=== PATIENT | female | born 1975 | race Caucasian/White ===

== ENCOUNTER 2019-09-21 04:48 | Emergency (ER) | payer SELFPAY ==
[2019-09-21 04:50] VITALS: BP 131/86; PULSE 71; RESP 22; TEMP 36.6; O2SAT 98; BMI 51.0
[2019-09-21 05:03] VITALS: BP 131/86; PULSE 71; RESP 22; TEMP 36.6; O2SAT 98
--- NOTE | 2019-09-21 05:54 | DI.CT.S_ITS ---
PROCEDURE: CT KIDNEY URETER BLADDER (KUB) INDICATIONS: R flank pain TECHNIQUE: Noncontrast 5 mm thick sections acquired from the diaphragms to the symphysis. 5 mm thick coronal and sagittal reformats were then performed. For radiation dose reduction, the following was used: automated exposure control, adjustment of mA and/or kV according to patient size. COMPARISON: [facility] 09/20/19 FINDINGS: Image quality: Excellent. Lung bases: Mild presumed atelectasis can be seen. Heart size is normal. Urinary system: There is excreting contrast seen within the renal collecting systems. Highly limits evaluation for stones. On the prior recent outside study, no large kidney stones can be seen. Both kidneys are normal in size. Both ureters appear non-dilated throughout their expected courses. Bladder wall thickness is normal; no calcified bladder stones. Other solid organs: Liver is normal in size. Gallbladder wall does not appear thickened. Pancreas is normal in contours. Spleen is enlarged, measuring 15 cm AP. No adrenal nodules. Peritoneum and bowel: Unenhanced bowel loops demonstrate normal wall thickness and caliber. No free fluid or air. Incidental note is made of a normal-appearing appendix. Nodes and vessels: No retroperitoneal or mesenteric adenopathy by size criteria. Aorta and inferior vena cava are normal in caliber. Abdominal wall: No ventral hernias. Pelvis: No free pelvic fluid. No inguinal hernias or adenopathy. Bones: No suspicious bony lesions. No vertebral body compression fractures. Degenerative changes are seen throughout, which are most prominent at the L5-S1 level. IMPRESSION: No findings of obstructive uropathy. The previously administered contrast limits evaluation or stones. However, no stones can be seen on the examination performed the on 09/20/19. Normal appendix. Incidental note is made of: Mild splenomegaly. Focal L5-S1 degenerative change Note: No significant discrepancy from the preliminary report. Dictated by: Braeden Tinajero M.D. on 09/21/2019 at 6:59 Approved by: Braeden Tinajero M.D. on 09/21/2019 at 7:04
[2019-09-21 05:58] LABS: Add Manual Diff / Slide Review NO; Basophils Absolute Auto 0 /uL (0-100); Basophils Percent Auto 0.7 % (0-2); Eosinophils Absolute Auto 100 /uL (0-450); Eosinophils Percent Auto 3.4 % (2-4); Hematocrit 36.7 % (36-46); Hemoglobin 12.5 g/dL (12.0-16.0); Lymphocytes Absolute Auto 600 /uL (1100-4500); Lymphocytes Percent Auto 21.1 % (25-40); Mean Corpuscular HGB Conc 34.1 % (30-36); Mean Corpuscular Hemoglobin 30.1 PG (26-34); Mean Corpuscular Volume 88.2 fL (80-100); Monocytes Absolute Auto 200 /uL (0-900); Monocytes Percent Auto 7.6 % (3-14); Neutrophils Absolute Auto 2000 /uL (1500-7000); Neutrophils Percent Auto 67.2 % (50-75); Platelet Count 177 X10^3/uL (150-400); Red Blood Cell Count 4.16 X10^6/uL (4.0-5.2); Red Cell Distribution Width 13.6 % (11.6-14.8)
[2019-09-21] MEDS: ONDANSETRON 4 MG/2 ML INJ IV (05:58)
[2019-09-21] MEDS: SODIUM CHLORIDE 0.9% 1,000 ML 1000 ML IV (05:58)
[2019-09-21 06:08] LABS: Alanine Aminotransferase 16 IU/L (<35); Albumin Globulin Ratio 1.3 (1.0-2.8); Alkaline Phosphatase 133 U/L (38-126); Aspartate Aminotransferase 24 IU/L (14-36); BUN Creatinine Ratio 11.3 (6-22); Bilirubin Total 1.3 mg/dL (0.2-1.3); Blood Urea Nitrogen 9 mg/dL (7-17); Calcium 8.8 mg/dL (8.4-10.2); Carbon Dioxide 22 mmol/L (22-32); Chloride 109 mmol/L (98-107); Estimated Glomerular Filt Rate > 60.0 mL/min (>60); Globulin 3.1 g/dL (1.7-4.1); Glucose 88 mg/dL (70-100); HEMOLYSIS < 15 (0-50); Lipase 100 U/L (23-300); Potassium 3.7 mmol/L (3.4-5.1); Sodium 140 mmol/L (137-145); Total Protein 7.1 g/dL (6.3-8.2)
--- NOTE | 2019-09-21 06:19 | ED.ABDPAIN ---
HPI - Abdominal Pain <Javier Frances DO - Last Filed: 09/22/19 03:17> General Chief Complaint: Abdominal Pain Stated Complaint: right side pain 5 days, now in back Time Seen by Provider: 09/21/19 04:50 Source: patient Mode of arrival: Ambulatory Limitations: no limitations History of Present Illness HPI narrative: 44-year-old female nonsmoker presents with a chief complaint of 5 days right flank pain with radiation to her right groin. She states it hurts most of the time but does have episodes where the pain intensifies without any obvious provocation. She has had nausea and vomiting and decreased oral input. She is not dizzy nor weak or lightheaded. She denies fever or chills. She denies any history of the same. She is visiting from [place]. She's had a C section and a history of ovarian cysts. MD complaint: abdominal pain and flank pain Onset (ago): day(s) Pain Consistency: constant and intermittent Location: RLQ and R flank Severity: severe Quality: cramping and stabbing Radiation: RLQ Relieving factors: nothing Exacerbating factors: nothing Associated symptoms: nausea and vomiting Related Data Allergies Allergy/AdvReac Type Severity Reaction Status Date / Time ketorolac [From Toradol] Allergy Verified 09/21/19 05:56 tramadol Allergy Verified 09/21/19 05:56 Review of Systems <Javier Frances DO - Last Filed: 09/22/19 03:17> Constitutional Constitutional: Denies chills, Denies fatigue, Denies fever(s), Denies frequent falls, Denies lethargy and Denies weakness Eyes Eyes: Denies change in vision, Denies eye discharge, Denies irritation and Denies loss of vision ENT Ears, Nose, Mouth, and Throat: Denies change in voice, Denies dizziness, Denies neck pain, Denies sore throat and Denies throat swelling Cardiovascular Cardiovascular: Denies chest pain, Denies irregular heart rhythm, Denies lightheadedness, Denies palpitations, Denies dyspnea, Denies dyspnea on exertion and Denies orthopnea Respiratory Respiratory: Denies cough, Denies dyspnea, Denies dyspnea on exertion and Denies wheezing Gastrointestinal Gastrointestinal: Denies abdominal pain, Denies change in bowel habits, Denies diarrhea, Denies nausea and Denies vomiting Genitourinary Genitourinary: Denies hematuria, Reports flank pain, Denies urinary incontinence and Denies urinary urgency Musculoskeletal Musculoskeletal: Denies back pain, Denies muscle weakness, Denies neck pain, Denies numbness and Denies tingling Integumentary/Breasts Skin/Breast: Denies pruritus, Denies erythema, Denies rash and Denies wounds Neurologic Neurologic: Denies behavioral changes, Denies confusion, Denies dizziness, Denies frequent falls, Denies loss of vision, Denies numbness, Denies tingling and Denies weakness Psychiatric Psychiatric: Denies anxiety, Denies behavioral changes, Denies confusion, Denies depression, Denies homicidal ideation and Denies suicidal ideation Endocrine Endocrine: Denies fatigue, Denies flushing and Denies palpitations Hematologic/Lymphatic Hematologic/Lymphatic: Denies easy bruising Allergic/Immunologic Allergic/Immunologic: Denies urticaria, Denies throat swelling and Denies wheezing Patient History <Javier Frances DO - Last Filed: 09/22/19 03:17> Social History Smoking Status: Never smoker Substance Use Type: does not use Exam <Javier Frances DO - Last Filed: 09/22/19 03:17> Narrative Exam Narrative: GENERAL: [44] year old patient appears stated age. Morbidly obese, mildly uncomfortable HEAD: Atraumatic. Normocephalic. EYES: Pupils equal round and reactive. Extraocular motions intact. No scleral icterus. No injection or drainage. ENT: Nose without bleeding, purulent drainage. Throat without erythema, tonsillar hypertrophy or exudate. Airway patent. NECK: Trachea midline. Non tender CARDIOVASCULAR: Regular rate and rhythm without murmurs, gallops, or rubs. RESPIRATORY: Clear to auscultation. Breath sounds equal bilaterally. No wheezes, rales, or rhonchi. GASTROINTESTINAL: Abdomen soft, non-tender, nondistended. EXTREMITIES: No edema or joint tenderness. BACK: Nontender without deformity or crepitance. No flank tenderness. NEURO: AOx3. SKIN: No rash or erythema of visible areas Initial Vital Signs Initial Vital Signs: Vital Signs Temperature 97.9 F 09/21/19 04:50 Pulse Rate 71 09/21/19 04:50 Respiratory Rate 22 09/21/19 04:50 Blood Pressure 131/86 09/21/19 04:50 Pulse Oximetry 98 09/21/19 04:50 <Tammi Ortiz DO - Last Filed: 09/21/19 15:54> Initial Vital Signs Initial Vital Signs: Vital Signs Temperature 97.9 F 09/21/19 04:50 Pulse Rate 71 09/21/19 04:50 Respiratory Rate 22 09/21/19 04:50 Blood Pressure 131/86 09/21/19 04:50 Pulse Oximetry 98 09/21/19 04:50 Course <Javier Frances DO - Last Filed: 09/22/19 03:17> Course Course Narrative: ANTONIETA rm now comes through and shows visits to [facility] and [place] yesterday. She then states she didn't want to tell me because nobody can find anything. She states that she wants to kill herself because of the pain. We are awaiting records from outside facilities Records from [facility] note a very similar complaint, normal labs and a normal CT. Patient had been given multiple rounds Dilaudid and Zofran and in the and felt better and was discharged. Orders Ordered: Discontinued Medications Sodium Chloride (Normal Saline 0.9%) 1,000 mls @ 1,000 mls/hr IV BOLUS ONE Stop: 09/21/19 06:39 Last Infusion: 09/21/19 08:19 Dose: 0 mls/hr Documented by: Admin: 09/21/19 05:58 Dose: 1,000 mls/hr Documented by: OBDULIA Ketorolac Tromethamine (Toradol) 15 mg IV NOW ONE Stop: 09/21/19 05:41 Last Admin: 09/21/19 07:21 Dose: Not Given Documented by: HEIDI Ondansetron HCl (Zofran) 4 mg IV NOW ONE Stop: 09/21/19 05:42 Last Admin: 09/21/19 05:58 Dose: 4 mg Documented by: OBDULIA Vital Signs Vital signs: Vital Signs - 8 hr 09/21/19 12:39 09/21/19 13:39 Pulse Rate 69 Respiratory Rate 16 Blood Pressure 123/65 Pulse Oximetry 97 <Tammi Ortiz DO - Last Filed: 09/21/19 15:54> Orders Ordered: Discontinued Medications Sodium Chloride (Normal Saline 0.9%) 1,000 mls @ 1,000 mls/hr IV BOLUS ONE Stop: 09/21/19 06:39 Last Infusion: 09/21/19 08:19 Dose: 0 mls/hr Documented by: Admin: 09/21/19 05:58 Dose: 1,000 mls/hr Documented by: OBDULIA Ketorolac Tromethamine (Toradol) 15 mg IV NOW ONE Stop: 09/21/19 05:41 Last Admin: 09/21/19 07:21 Dose: Not Given Documented by: HEIDI Ondansetron HCl (Zofran) 4 mg IV NOW ONE Stop: 09/21/19 05:42 Last Admin: 09/21/19 05:58 Dose: 4 mg Documented by: OBDULIA Vital Signs Vital signs: Vital Signs - 8 hr 09/21/19 12:39 09/21/19 13:39 Pulse Rate 69 Respiratory Rate 16 Blood Pressure 123/65 Pulse Oximetry 97 MDM - Abdominal Pain <Javier Frances DO - Last Filed: 09/22/19 03:17> Lab Data Result diagrams: 09/21/19 05:50 09/21/19 05:50 Labs: Lab Results 09/21/19 09/21/19 09/21/19 Range/Units 05:50 05:50 05:50 WBC 3.0 L (4.5-11.0) X10^3/uL RBC 4.16 (4.0-5.2) X10^6/uL Hgb 12.5 (12.0-16.0) g/dL Hct 36.7 (36-46) % MCV 88.2 (80-100) fL MCH 30.1 (26-34) PG MCHC 34.1 (30-36) % RDW 13.6 (11.6-14.8) % Plt Count 177 (150-400) X10^3/uL Neut % (Auto) 67.2 (50-75) % Lymph % (Auto) 21.1 L (25-40) % Early % (Auto) 7.6 (3-14) % Eos % (Auto) 3.4 (2-4) % Baso % (Auto) 0.7 (0-2) % Neut # (Auto) 2000 (2487-2663) /uL Lymph # (Auto) 600 L (7349-8726) /uL Early # (Auto) 200 (0-900) /uL Eos # (Auto) 100 (0-450) /uL Baso # (Auto) 0 (0-100) /uL Sodium 140 (137-145) mmol/L Potassium 3.7 (3.4-5.1) mmol/L Chloride 109 H (98-107) mmol/L Carbon Dioxide 22 (22-32) mmol/L BUN 9 (7-17) mg/dL Creatinine 0.80 (0.52-1.04) mg/dL Estimated GFR > 60.0 (>60) mL/min BUN/Creatinine Ratio 11.3 (6-22) Glucose 88 (70-100) mg/dL Calcium 8.8 (8.4-10.2) mg/dL Total Bilirubin 1.3 (0.2-1.3) mg/dL AST 24 (14-36) IU/L ALT 16 (<35) IU/L Alkaline Phosphatase 133 H (38-126) U/L Total Protein 7.1 (6.3-8.2) g/dL Albumin 4.0 (3.5-5.0) g/dL Globulin 3.1 (1.7-4.1) g/dL Albumin/Globulin Ratio 1.3 (1.0-2.8) Lipase 100 (23-300) U/L Ethyl Alcohol < 10 ( - 10) mg/dL <Tammi Ortiz, DO - Last Filed: 09/21/19 15:54> Lab Data Attestation: I reviewed the patient's lab results. Labs: Lab Results 09/21/19 09/21/19 09/21/19 Range/Units 05:50 05:50 05:50 WBC 3.0 L (4.5-11.0) X10^3/uL RBC 4.16 (4.0-5.2) X10^6/uL Hgb 12.5 (12.0-16.0) g/dL Hct 36.7 (36-46) % MCV 88.2 (80-100) fL MCH 30.1 (26-34) PG MCHC 34.1 (30-36) % RDW 13.6 (11.6-14.8) % Plt Count 177 (150-400) X10^3/uL Neut % (Auto) 67.2 (50-75) % Lymph % (Auto) 21.1 L (25-40) % Early % (Auto) 7.6 (3-14) % Eos % (Auto) 3.4 (2-4) % Baso % (Auto) 0.7 (0-2) % Neut # (Auto) 2000 (4832-3273) /uL Lymph # (Auto) 600 L (2176-9083) /uL Early # (Auto) 200 (0-900) /uL Eos # (Auto) 100 (0-450) /uL Baso # (Auto) 0 (0-100) /uL Sodium 140 (137-145) mmol/L Potassium 3.7 (3.4-5.1) mmol/L Chloride 109 H (98-107) mmol/L Carbon Dioxide 22 (22-32) mmol/L BUN 9 (7-17) mg/dL Creatinine 0.80 (0.52-1.04) mg/dL Estimated GFR > 60.0 (>60) mL/min BUN/Creatinine Ratio 11.3 (6-22) Glucose 88 (70-100) mg/dL Calcium 8.8 (8.4-10.2) mg/dL Total Bilirubin 1.3 (0.2-1.3) mg/dL AST 24 (14-36) IU/L ALT 16 (<35) IU/L Alkaline Phosphatase 133 H (38-126) U/L Total Protein 7.1 (6.3-8.2) g/dL Albumin 4.0 (3.5-5.0) g/dL Globulin 3.1 (1.7-4.1) g/dL Albumin/Globulin Ratio 1.3 (1.0-2.8) Lipase 100 (23-300) U/L Ethyl Alcohol < 10 ( - 10) mg/dL MDM Narrative Medical decision making narrative: I received sign-out from , seen evaluated patient myself. She is lying comfortably ice closed in the room. She is not sleeping she refuses to give me any information stating that she started 20 other doctor. She does not want to be in pain anymore and wants to know what is happening. She has had multiple CT scans and workups this week. I have offered a pelvic ultrasound she states that she does not have ovaries and is refusing any further workup but wants to know what's wrong. She is wanting something for pain is not seem to be in any severe pain she refuses to let me examine her show me where her pain is. She is offered Tylenol or ibuprofen if needed. Patient records from [facility] have been reviewed. She was seen and evaluated there on September 20 2019, yesterday for the same. She was seen earlier that day where she had a CT which did show no right ovary. The ER physician spoke with the radiologist, it was not recommended that pelvic ultrasound be done at that time. However it was noted that she had pain are proportion in her right side. She was demanding narcotic medications and stated that she wanted to be and then eloped from the emergency department. 8:45 a.m. social science analyst to evaluate patient, patient has been moved to room 13 Patient no longer cooperating for exam refusing to talk. She refused to give a urine drug screen. She pulled her IV out in the bathroom and tripped blood all the way back to her room. She has been offered food which she has refused. She has remained lying down on her side without complaints on relatively calm during her stay in the emergency department. DHR here to evaluate patient. No indication to keep patient. Patient is discharged Discharge Plan Departure Patient Disposition: Home Clinical Impression: Abdominal pain Qualifiers: Abdominal location: right lower quadrant Qualified Code(s): R10.31 - Right lower quadrant pain Discharge Date/Time: 09/21/19 13:42 Instructions: DI for Abdominal Pain-Adult Activity Restrictions/Additional Instructions: *You have been diagnosed with abdominal pain *What to do: Unknown what is causing her abdominal pain. He refused a pelvic ultrasound today you had multiple CT scans during year frequent ER visits in the last 24 hours. If you are feeling suicidal or having suicidal thoughts: Call: Suicide Hotline: Visit: www.[employer].org Text: 878747 *Continue to take medications as directed *Follow up with your primary care provider in 2-3 days *Return to ER if you should have any new, worsening or concerning symptoms Referrals: [facility] [Outside]
--- NOTE | 2019-09-21 07:22 | PC.NURSE ---
Received report from [facility]. pt resting in bed eyes closed on side. appears in NAD. IVF infusing. awaiting CT scan results. will monitor
--- NOTE | 2019-09-21 08:14 | PC.NURSE ---
pt yelling out excuse me entered room, pt requests to use bathroom. attached call light to patients bed, explained to patient so she does not feel alone then asked if she had shoes to wear. pt states quite playing around i need to use the bathroom, explained to patient its for her safety and pt stomped out of room refusing to put non skid socks on for safety and into bathroom barefoot.
--- NOTE | 2019-09-21 08:17 | PC.NURSE ---
pt refusing to communicate or follow direction. pt refusing to let me reconnect her iv fluids for hydration, remains on her left side under blankets.
--- NOTE | 2019-09-21 08:47 | PC.NURSE ---
Pt transferred to 13 in stretcher. belongings removed from room and placed in locked designated cabinet. MAYUR Naqvi in ED to evaluate pt. Pt refusing to answer RN questions at this time.
--- NOTE | 2019-09-21 09:14 | PC.NURSE ---
Pt refusing breakfast tray. HYDRO ELECTRIC STATION OPERATOR reports pt refuses to speak to her. Daughter's phone number on file is not in service. When pt asked if she has any family we can call pt states i have no kids
--- NOTE | 2019-09-21 09:53 | PC.NURSE ---
In room to remove IV. pt states she has to go to the bathroom. refusing to wear non skid socks. gave pt specimen cup and asked for urine sample, pt took cup and threw it in the garbage. pt ripped off IV removal dressing and threw it on the ground and proceeded to drip blood on floor throughout department and refusing nurses help. made aware of pt's inappropriate behavior. resting on stretcher in rm 13.
--- NOTE | 2019-09-21 11:11 | CM.SWNOTE ---
MH Assessment: Patient is a 44 year old female who was admitted to [facility] ER this morning on 09/21/19 for abdominal pain and suicidal statements. Discharge Planning/Care Management HIDE MEASURING MACHINE OPERATOR - Insurance Billing Clerk Assessment Start: 09/21/19 10:47 Freq: Status: Active Protocol: Document 09/21/19 10:47 BF (Rec: 09/21/19 11:11 BF [id number]) HIDE MEASURING MACHINE OPERATOR/Insurance Billing Clerk Assessment Start date 09/21/19 Visit Start Time 08:30 Total time Care Management spent on 60 min so far patient visit-in minutes Presenting Problem Pt presents with abd pain without disclosing that she also has been to [facility] ER 3 times in last few days and [facility] ER yesterday before presenting to [facility] with similar complaints with 3 CAT scans in 24 hours as pt did not disclose her prior ER hospital visits. No found source of pain on imaging. Pt requesting IV pain medication and making suicidal ideation statements with plan. Precipitating Event(s) Pt has stated to MD that she has had pain for 5 days with no relief or identified source for pain and states well I should just then, I can't handle this pain any longer, I will drive my car off a bridge. Current Behavioral Health Provider(s) refuses to provide information Include Facility, Provider, Ph. # Psych. Hx Mental Health and Chemical Called [facility] and pt not Dependency currently enrolled in their Medicaid system and not showing as having any MH hospitalizations or Crisis Plans. Pt refusing to provide any information Psychiatric Hospitalizations (date(s)/ Unknown location) Support System(s) Unknown, pt will not provide any further supportive contacts and will not confirm the two listed contacts, her brother and Dtr, and now denying that she has any family. School/Work Unknown Presenting Problem Pt has been to 3 hospital ER's in 24 hours requesting IV pain medication but declining to answer further questions. Legal Matters - Outstanding Issues Unknown Orientation (Person/Place/Time) Pt appears to be oriented x3 but now refusing to answer any further questions or provide information. Affect Flat, eyes closed, laying down and refusing to answer questions after a couple minutes stating I'm done with this conversation, this isn't helping me at all. Thought Content - Specify/Describe Unknown as pt not Obsessions, Delusions, Hallucinations communicating now with staff Speech (Qtnaoj-Imqs-Hojpysb-Rapid-Soft- Speech appeared normal when Loud-Pressured) she was first willing to provide information but then pt refused to talk any more to staff or HIDE MEASURING MACHINE OPERATOR Motor (Hpcjac-Qdkuddopd-Wbyq-Other) Pt laying in bed with blanket pulled up and closing eyes when staff enters room and refusing to talk. Pt was able to walk unassisted by RN to bathroom but refused urine sample. Insight (Present-Partially Present- Impaired Impaired) Judgement (Intact-Impaired) Impaired Memory (Hkfnohfzp-Oszocx-Qtkehj, Unknown. Pt states she does Impaired-Intact) not know this area as she is from [place] and has been here visiting her Dtr when asked where her Dtr lives and how she has gotten to 3 different hospitals and pt declined answering. Behavior (Appropriate-Inappropriate) Pt's behavior is agitated, angry as displayed by refusing urine sample and pulling out her IV and getting blood from bathroom to her ED room 13. Pt refusing to answer questions or provide information towards helping meet her needs. Suicidal Ideation (Plan) Yes: States will drive her car off the bridge Intervention HIDE MEASURING MACHINE OPERATOR attempted to meet bedside with pt in ER room 13 after making suicidal statements. Pt initially discussed that she is still in pain and nauseous and laying in bed with blaket pulled up and does not make eye contact. HIDE MEASURING MACHINE OPERATOR inquired about where family or backshoe person lives that she is staying with and how she has gotten to the 3 different ER's and pt declined answering stating I'm done with this conversation, its not helping me. HIDE MEASURING MACHINE OPERATOR called [facility] and [facility] ER HIDE MEASURING MACHINE OPERATOR's to inquire if they had further contact information for the pt and was given pt's brother's contact info Michael Fierro and they confirm that pt was offered pain medication scripts to fill and no source of pain identified and pt left [facility] by elopement without meds after making vague suicidal statements. HIDE MEASURING MACHINE OPERATOR attempted to call both Dtr Rudy ([phone]) and brother Michael multiple times without success as both numbers did not have a working voicemail or answer. HIDE MEASURING MACHINE OPERATOR met again bedside with pt and discussed the need to determine if pt was still having suicidal ideation and if pt was not able to confirm or deny then likely need for DCR to be dispatched to assess pt and pt continued to close her eyes and decline any answer or provide any information. HIDE MEASURING MACHINE OPERATOR updated MD who is agreeable with decision to call [facility] to determine if DCR can be dispatched to assess pt as she appears to be in a mental health crisis with possible drug seeking behaviors. RA Plan HIDE MEASURING MACHINE OPERATOR called [facility] with new referral for DCR assessment to determine if pt meets criteria for Involuntary MH Placement as she is currently refusing to communicate or participate in safety planning . DCR Lior to be dispatched to [facility] to assess pt today. HIDE MEASURING MACHINE OPERATOR updated RN who will request MD to sign the Medical Clearance Attestation needed by [facility].
[2019-09-21 11:16] LABS: Ethanol (ETOH) < 10 mg/dL
--- NOTE | 2019-09-21 11:27 | PC.NURSE ---
Per Dr Ortiz, no Q15 min monitoring needed at this time.
--- NOTE | 2019-09-21 12:14 | PC.NURSE ---
Transfer of care to [facility] and report given. continues to await DCR for mental eval.
--- NOTE | 2019-09-21 12:16 | PC.NURSE ---
Patient refuses vital signs to be taken at this time.
--- NOTE | 2019-09-21 12:19 | PC.NURSE ---
Offered patient lunch and she said she did not want lunch
[2019-09-21 12:39] VITALS: RESP 16
[2019-09-21 13:39] VITALS: BP 123/65; PULSE 69; O2SAT 97
== END 2019-09-21 13:42 | disposition home or self-care (01) ==
PROVIDERS: Emergency Medicine; Emergency Provider Emergency Medicine
DX: R10.31 Right lower quadrant pain (principal); R11.2 Nausea with vomiting, unspecified
CPT/HCPCS: 36415; 74176; 80053; 80320; 83690; 85025; 96361; 96374; 99283; 99284; J2405